=== PATIENT | female | born 1950 | race Caucasian/White ===

== ENCOUNTER → 2017-03-02 | Outpatient (CLI) | payer MEDICARE ==
--- NOTE | 2017-03-02 10:13 | Diagnostic Imaging Report ---
PROCEDURE:X-RAY UPPER GI SERIES WITH AIR CONTRAST COMPARISON:None. INDICATIONS:Dysphasia TECHNIQUE:Routine double contrast upper GI using effervescent crystals, thin barium, thick barium, and a barium pill. Fluoroscopy time: 2.4 minutes; cumulative air kerma: 54.08 mGy FINDINGS: The esophagus, stomach and duodenal streak demonstrate normal mucosal contour, caliber and emptying. There is occasional esophageal dysmotility, with incomplete bolus stripping and retropulsion. The patient was able to clear residual esophageal debris with multiple swallows. There was no difficulty with passage of a barium pill. No gross episodes of esophageal spasm. CONCLUSION: Mild esophageal dysmotility, with occasional retropulsion and incomplete bolus stripping. No mechanical obstruction or mucosal irregularity. No conspicuous gastroesophageal reflux. Dictated by: Kasi Martins M.D. on 03/02/2017 at 10:21 Electronically approved by: Kasi Martins M.D. on 03/02/2017 at 10:21
== END ==
LOC: DX 08:15
PROVIDERS: ATTEND Internal Medicine Gastroenterology
DX: R13.12 Dysphagia, oropharyngeal phase (principal)
CPT/HCPCS: 74220; 74246

== ENCOUNTER → 2021-05-13 | Outpatient (CLI) | payer MEDICARE | LOC: RAD 11:28 | PROVIDERS: ATTEND Internal Medicine | DX: M54.40 Lumbago with sciatica, unspecified side (principal) | CPT/HCPCS: 72110 ==

== ENCOUNTER 2023-07-24 08:45 | Outpatient (RCR) | payer MEDICARE | END 2023-08-20 | LOC: PT 08:45 | PROVIDERS: ATTEND Internal Medicine | DX: M47.816 Spondylosis without myelopathy or radiculopathy, lumbar region (principal); M62.81 Muscle weakness (generalized); M53.86 Other specified dorsopathies, lumbar region ==

== ENCOUNTER → 2023-09-18 | Day surgery (SDC) | payer MEDICARE ==
[2023-09-11 15:23] LABS: BASOPHILS % 0.5 % (0.0-1.0); EOSINOPHILS # (AUTO) 0.2 (0.0-0.4); EOSINOPHILS % 2.8 % (0.0-6.0); HEMATOCRIT 42.2 % (34.2-44.1); HEMOGLOBIN 13.3 g/dL (12.0-16.0); LYMPHOCYTES # (AUTO) 1.6 (1.0-3.2); LYMPHOCYTES % 26.7 % (18.0-39.1); MEAN CORPUSCULAR HEMOGLOBIN 30.8 pg (28-32); MEAN CORPUSCULAR HGB CONC 31.5 g/dL (31-35); MEAN CORPUSCULAR VOLUME 97.7 fL (81-99); MONOCYTES # (AUTO) 0.5 (0.2-0.8); MONOCYTES % 7.5 % (4.4-11.3); NEUTROPHILS # (AUTO) 3.8 (2.1-6.9); NEUTROPHILS % 62.3 % (38.7-80.0); PLATELET COUNT 205 x10e3/uL (140-360); RED BLOOD COUNT 4.32 x10e6/uL (3.6-5.1); RED CELL DISTRIBUTION WIDTH 12.8 % (11.7-14.4)
[~2023-09-18] MED LIST: HAIR SKIN NAIL1 EACH; LEVOTHYROXINE50 MCG PO; LIDOCAINE HCL 2% LOCAL INJ 5 ML SDV VIAL INJ ONE; PRALUENT P75 MG/1 ML IM; PROPOFOL IV EMULSION 10 MG/ML 20 ML VIAL ONE; PROPOFOL IV EMULSION 10 MG/ML 50 ML VIAL IV ONE; RESTASIS MULTI5.5 ML; RETAINE MGD EY1 EACH; VITAMIN D3125 MCG; ZEBETA10 MG PO
[2023-09-18] MEDS: LACTATED RINGER'S 1,000 ML BAG IV ONE (09:15)
[2023-09-18 10:50] VITALS: TEMP 97.7
[2023-09-18 11:20] VITALS: BP 130/72; PULSE 80; RESP 16; O2SAT 98
== END | disposition home or self-care (01) ==
LOC: OR 08:22
PROVIDERS: ATTEND Internal Medicine Gastroenterology
DX: Z12.11 Encounter for screening for malignant neoplasm of colon (principal); Z86.010 Personal history of colon polyps; K56.609 Unspecified intestinal obstruction, unspecified as to partial versus complete obstruction; K57.30 Diverticulosis of large intestine without perforation or abscess without bleeding; K64.8 Other hemorrhoids; I10 Essential (primary) hypertension; E78.5 Hyperlipidemia, unspecified; I35.1 Nonrheumatic aortic (valve) insufficiency; E03.9 Hypothyroidism, unspecified; K58.9 Irritable bowel syndrome, unspecified; Z01.810 Encounter for preprocedural cardiovascular examination; Z85.828 Personal history of other malignant neoplasm of skin; Z79.899 Other long term (current) drug therapy
CPT/HCPCS: 36415; 85025; 93005; G0104; J2001; J2704 ×2; J7121; 45378

== ENCOUNTER → 2023-10-18 | Outpatient (REF) | payer MEDICARE ==
[~2023-10-18] MED LIST changes: -LIDOCAINE HCL 2% LOCAL INJ 5 ML SDV VIAL INJ ONE; -PROPOFOL IV EMULSION 10 MG/ML 20 ML VIAL ONE; -PROPOFOL IV EMULSION 10 MG/ML 50 ML VIAL IV ONE
== END ==
LOC: DX 09:23
PROVIDERS: ATTEND Nurse Practitioner
DX: K57.30 Diverticulosis of large intestine without perforation or abscess without bleeding (principal); Z86.010 Personal history of colon polyps
CPT/HCPCS: 74270

== ENCOUNTER → 2024-08-29 | Outpatient (REF) | payer MEDICARE | LOC: MRI 09:46 | PROVIDERS: ATTEND Internal Medicine | DX: M54.42 Lumbago with sciatica, left side (principal) | CPT/HCPCS: 72148 ==